=== PATIENT | male | born 1995 | race Two or more races ===

== ENCOUNTER → 2024-05-12 | Emergency (ER) | payer BC ==
[~2024-05-12] VITALS: Ht 172.7 cm; Wt 93.0 kg
[2024-05-12 17:08] VITALS: BP 124/70; TEMP 98.9; O2SAT 97
== END | disposition left against medical advice (07) ==
LOC: ER 16:47
DX: R10.12 Left upper quadrant pain (principal); Z53.21 Procedure and treatment not carried out due to patient leaving prior to being seen by health care provider